=== PATIENT | male | born 1975 ===

== ENCOUNTER 2019-04-29 07:55 | Outpatient (CLI) | payer OTHER | END 2019-04-29 08:03 | disposition home or self-care (01) | LOC: EKG 07:55 | DX: I10 Essential (primary) hypertension (principal) ==

== ENCOUNTER 2019-05-02 06:38 | Day surgery (SDC) | payer OTHER | END 2019-05-02 14:30 | disposition home or self-care (01) | LOC: CIR.AMB 06:38 | DX: M75.41 Impingement syndrome of right shoulder (principal); M13.811 Other specified arthritis, right shoulder ==